=== PATIENT | female | born 1990 | race American Indian/Alaskan Native ===

== ENCOUNTER 2017-09-07 16:31 | Emergency (ER) | payer OTHER ==
[2017-09-07 16:43] VITALS: BP 119/80
[2017-09-07 20:16] LABS: Bilirubin,Urine NEG (Negative); Blood,Urine NEG (Negative); Color,Urine Yellow (Yellow); Protein,Urine <15 mg/dL mg/dL (Negative); Urobilinogen,Urine < 2.0 mg/dL (<2.0)
[2017-09-07] MEDS ORDERED: ULTRAM PO ONE (20:19)
[2017-09-07 20:20] LABS: HCG Qualitative,Urine Negative (Negative)
--- NOTE | 2017-09-07 20:23 | Emergency Department Report ---
ED Lower Extremity HPI - General Chief Complaint: Extremity Problem,Nontraumatic Stated Complaint: KNEE PAIN Time Seen by Provider: 09/07/17 20:12 Source: patient Mode of arrival: Ambulatory Limitations: No Limitations - History of Present Illness Initial Comments: pt states she slipped and fell in store stiking her anterior left knee approx 4 hrs ago , pt was initially ambulatory on scene but pain in lower knee now 5/10 exacerbated by weight bearing, pt denies laceration or abrasion no swelling , pain with ambulation using crutches already in her possession MD Complaint: knee injury Onset/Timin -: hour(s) Injury: Knee: Left Type of Injury: blunt, other Place: other (store) Severity: moderate Severity scale (0 -10): 4 Improves With: rest Worsens With: weight bearing Context: fall Associated Symptoms: able to partially bear weight - Related Data Previous Rx's Medication Instructions Recorded Last Taken Type Cephalexin [Keflex] 500 mg PO BID #14 capsule 09/07/17 Unknown Rx Cyclobenzaprine [Flexeril] 10 mg PO BID PRN #20 tablet 09/07/17 Unknown Rx Naproxen 500 mg PO BID PRN #30 tablet 09/07/17 Unknown Rx Allergies Allergy/AdvReac Type Severity Reaction Status Date / Time No Known Allergies Allergy Unverified 09/07/17 16:43 ED Review of Systems ROS: Stated complaint: KNEE PAIN Other details as noted in HPI Constitutional: denies: chills, fever Eyes: denies: eye pain, eye discharge, vision change ENT: denies: ear pain, throat pain Respiratory: denies: cough, shortness of breath, wheezing Cardiovascular: denies: chest pain, palpitations Endocrine: no symptoms reported Gastrointestinal: denies: abdominal pain, nausea, diarrhea Genitourinary: denies: urgency, dysuria, discharge Musculoskeletal: myalgia, other (knee pain ). denies: back pain, joint swelling , arthralgia Skin: denies: rash, lesions Neurological: denies: headache, weakness, paresthesias Psychiatric: denies: anxiety, depression Hematological/Lymphatic: denies: easy bleeding, easy bruising ED Past Medical Hx - Past Medical History Previous Medical History?: No Additional medical history: anemic - Social History Smoking Status: Never Smoker - Medications Home Medications: Home Medications Medication Instructions Recorded Confirmed Last Taken Type Cephalexin [Keflex] 500 mg PO BID #14 capsule 09/07/17 Unknown Rx Cyclobenzaprine [Flexeril] 10 mg PO BID PRN #20 tablet 09/07/17 Unknown Rx Naproxen 500 mg PO BID PRN #30 tablet 09/07/17 Unknown Rx ED Physical Exam - General Limitations: No Limitations General appearance: alert, in no apparent distress - Head Head exam: Present: atraumatic, normocephalic - Eye Eye exam: Present: normal appearance - ENT ENT exam: Present: mucous membranes moist - Neck Neck exam: Present: normal inspection - Respiratory Respiratory exam: Present: normal lung sounds bilaterally. Absent: respiratory distress - Cardiovascular Cardiovascular Exam: Present: regular rate, normal rhythm. Absent: systolic murmur, diastolic murmur, rubs, gallop - GI/Abdominal GI/Abdominal exam: Present: soft, normal bowel sounds - Rectal Rectal exam: Present: deferred - Extremities Exam Extremities exam: Present: normal inspection, full ROM, tenderness (left anterior knee ), normal capillary refill. Absent: pedal edema, joint swelling, calf tenderness - Expanded Lower Extremity Exam Left Knee exam: Present: normal inspection, full ROM, tenderness (anterior sub patellar pain no echymosis no swelling no erythema no drawer no pain with rotation joint is stable ), full knee extension. Absent: swelling, abrasion, laceration, ecchymosis, deformity, crepidus, dislocation, erythema, effusion, pain w/ pronation/supination, posterior draw sign, pain/laxity with valgus Lower Leg exam: Present: normal inspection, full ROM Ankle exam: Present: normal inspection, full ROM Foot/Toe exam: Present: normal inspection, full ROM Neuro vascular tendon exam: Present: no vascular compromise. Absent: pulse deficit, abnormal cap refill, motor deficit, sensory deficit, tendon deficit, extremity cold to touch, pallor, abnormal 2-point discrimination, decreased fine /light touch, foot drop, peroneal nerve deficit, significant pain with passive ROM of distal joint Gait: Positive: observed and limited by pain - Back Exam Back exam: Present: normal inspection - Neurological Exam Neurological exam: Present: alert, oriented X3 - Psychiatric Psychiatric exam: Present: normal affect, normal mood - Skin Skin exam: Present: warm, dry, intact, normal color. Absent: rash ED Course Vital Signs 09/07/17 16:37 Temperature 98.7 F Pulse Rate 87 Respiratory 16 Rate Blood Pressure 119/80 O2 Sat by Pulse 100 Oximetry ED Lower Extremity MDM - Lab Data Laboratory Tests 09/07/17 19:53 Urine Color Yellow Urine Turbidity Clear Urine pH 7.0 Ur Specific [place] 1.010 Urine Protein <15 mg/dl Urine Glucose (UA) Neg Urine Ketones Neg Urine Blood Neg Urine Nitrite Neg Urine Bilirubin Neg Urine Urobilinogen < 2.0 Ur Leukocyte Esterase Lg Urine WBC (Auto) 42.0 H Urine RBC (Auto) 2.0 U Epithel Cells (Auto) 5.0 Urine HCG, Qual Negative - Radiology Data Radiology results: report reviewed, image reviewed no fracture no soft tissue abnormality - Medical Decision Making pt appears well nad, knee exam: no swelling no ecchymosis rom intact no drawer no pain with rotation no deformity no ecchymosis no erythema xray: neg for fracture, incidental uti on ua, will tx with keflex, pt denies vaginal discharge plan: ed[place] continue to use crutches, nsaids, flexeril, tiger balm, knee exercises, cryo, follow up with pcp in 2-3 days. Critical care attestation.: If time is entered above; I have spent that time in minutes in the direct care of this critically ill patient, excluding procedure time. ED Disposition Clinical Impression: Strain of left knee Qualifiers: Encounter type: initial encounter Qualified Code(s): S86.912A - Strain of unspecified muscle(s) and tendon(s) at lower leg level, left leg, initial encounter Disposition: TO HOME OR SELFCARE Is pt being admited?: No Does the pt Need Aspirin: No Condition: Good Instructions: Knee Pain (ED), Knee Exercises (GEN), Knee Sprain (ED) Prescriptions: Cephalexin [Keflex] 500 mg PO BID #14 capsule Cyclobenzaprine [Flexeril] 10 mg PO BID PRN #20 tablet PRN Reason: Muscle Spasm Naproxen 500 mg PO BID PRN #30 tablet PRN Reason: Pain , Severe (7-10) Referrals: [facility] [Outside] - 3-5 Days Forms: Work/School Release Form(ED) Time of Disposition: 20:56
--- NOTE | 2017-09-07 21:02 | XRay Report ---
FINAL REPORT PROCEDURE: XR KNEE 3V LT TECHNIQUE: Left knee radiographs, AP, lateral and sunrise views. CPT 52527 HISTORY: fall /LT KNEE PAIN COMPARISON: No prior studies are available for comparison. FINDINGS: Fracture (s) and/or Dislocation(s): None . Alignment: Normal . Joint space(s): Normal . Soft tissues: Normal . Bone mineralization: Normal . Foreign bodies: None . IMPRESSION: Normal Examination.
== END 2017-09-07 21:15 | disposition home or self-care (01) ==
LOC: ED 16:31
DX: S86.812A Strain of other muscle(s) and tendon(s) at lower leg level, left leg, initial encounter (principal); W01.198A Fall on same level from slipping, tripping and stumbling with subsequent striking against other object, initial encounter; Y93.89 Activity, other specified; Y92.89 Other specified places as the place of occurrence of the external cause; Y99.8 Other external cause status
CPT/HCPCS: 81001; 81025; 99284

== ENCOUNTER 2018-07-05 11:27 | Emergency (ER) | payer SELFPAY ==
[2018-07-05 11:55] VITALS: BP 106/67
--- NOTE | 2018-07-05 11:55 | Emergency Department Report ---
Blank Doc - Documentation Documentation: This is a 28-year-old female that right 5th toe x1 day and painful sexual inte rcourse xyears. Denies any other complaints. This initial assessment diagnostic orders/clinical plan/treatment(s) is/are subject to change based on patient's health status, clinical progression and re- assessment by fellow clinical providers in the ED. Further treatment and workup at subsequent clinical providers discretion. Patient/guardians urged not to elope from ED s their condition may be serious if not clinically assessed and managed. Initial orders include: 1-Patient sent to [facility] for further evaluation and treatment 2-xray
--- NOTE | 2018-07-05 12:39 | Emergency Department Report ---
ED Lower Extremity HPI - General Chief Complaint: Medical Clearance Stated Complaint: RIGHT TOE INJURY/VAGINAL PAIN CURING SEX Time Seen by Provider: 07/05/18 11:52 Source: patient Mode of arrival: Wheelchair Limitations: No Limitations - History of Present Illness Initial Comments: Patient is 28 years old female with no significant past medical history. Patient presented to the ER complaining of right foot pain since yesterday after a horse stepped on her foot. Patient denied any other injuries. 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 Patient denied any vaginal discharge, vaginal bleeding, fever, dysuria or other symptoms. MD Complaint: foot injury -: Last night Injury: Foot: Right Type of Injury: blunt Place: street/outdoors Severity: moderate Severity scale (0 -10): 5 - Related Data Previous Rx's Medication Instructions Recorded Last Taken Type Cephalexin [Keflex] 500 mg PO BID #14 capsule 09/07/17 Unknown Rx Naproxen 500 mg PO BID PRN #30 tablet 09/07/17 Unknown Rx Cyclobenzaprine [Flexeril 10 MG 10 mg PO BID PRN #20 tablet 05/05/18 Unknown Rx TAB] Ibuprofen [Motrin] 800 mg PO Q8HR #30 tablet 05/05/18 Unknown Rx Allergies Allergy/AdvReac Type Severity Reaction Status Date / Time No Known Allergies Allergy Verified 05/05/18 10:43 ED Review of Systems ROS: Stated complaint: RIGHT TOE INJURY/VAGINAL PAIN CURING SEX Other details as noted in HPI Comment: All other systems reviewed and negative Respiratory: denies: cough, shortness of breath Genitourinary: dyspareunia. denies: urgency, dysuria, frequency, hematuria, discharge, abnormal menses ED Past Medical Hx - Past Medical History Previous Medical History?: Yes Additional medical history: anemic - Surgical History Past Surgical History?: Yes Additional Surgical History: rt ankle - Social History Smoking Status: Never Smoker Substance Use Type: Prescribed - Medications Home Medications: Home Medications Medication Instructions Recorded Confirmed Last Taken Type Cephalexin [Keflex] 500 mg PO BID #14 capsule 09/07/17 Unknown Rx Naproxen 500 mg PO BID PRN #30 tablet 09/07/17 Unknown Rx Cyclobenzaprine [Flexeril 10 MG 10 mg PO BID PRN #20 tablet 05/05/18 Unknown Rx TAB] Ibuprofen [Motrin] 800 mg PO Q8HR #30 tablet 05/05/18 Unknown Rx ED Physical Exam - General Limitations: No Limitations General appearance: alert, in no apparent distress - Head Head exam: Present: atraumatic, normocephalic, normal inspection - Eye Eye exam: Present: normal appearance - ENT ENT exam: Present: normal exam, normal orophraynx - Neck Neck exam: Present: normal inspection, full ROM. Absent: tenderness, meningismus, lymphadenopathy, thyromegaly - Respiratory Respiratory exam: Present: normal lung sounds bilaterally - Cardiovascular Cardiovascular Exam: Present: regular rate, normal rhythm, normal heart sounds - GI/Abdominal GI/Abdominal exam: Present: soft. Absent: distended, tenderness, guarding, rebound, rigid - Expanded Lower Extremity Exam Right Lower Leg exam: Present: normal inspection, full ROM Ankle exam: Present: normal inspection, full ROM Foot/Toe exam: Present: normal inspection, full ROM, tenderness. Absent: swelling, abrasion, laceration, ecchymosis, dislocation, erythema, amputation Neuro vascular tendon exam: Present: no vascular compromise Gait: Positive: observed and normal - Back Exam Back exam: Present: normal inspection, full ROM. Absent: CVA tenderness (R), CVA tenderness (L), muscle spasm, paraspinal tenderness, vertebral tenderness - Neurological Exam Neurological exam: Present: alert, oriented X3, CN II-XII intact, normal gait - Psychiatric Psychiatric exam: Present: normal mood - Skin Skin exam: Present: warm, intact, normal color ED Course Vital Signs 07/05/18 11:53 Temperature 99 F Pulse Rate 78 Respiratory 18 Rate Blood Pressure 106/67 Blood Pressure 106/67 [Right] O2 Sat by Pulse 100 Oximetry ED Lower Extremity MDM - Radiology Data Radiology results: image reviewed interpreted by me: Right foot x-ray is unremarkable for acute findings. No fracture or dislocation. Critical care attestation.: If time is entered above; I have spent that time in minutes in the direct care of this critically ill patient, excluding procedure time. ED Disposition Clinical Impression: Contusion of foot, right, Dyspareunia Disposition: - TO HOME OR SELFCARE Is pt being admited?: No Condition: Stable Instructions: Foot Contusion (ED) Referrals: [facility] [Provider Group] - 3-5 Days
--- NOTE | 2018-07-05 13:00 | XRay Report ---
FINAL REPORT EXAM: XR FOOT 3+V RT HISTORY: foot pain TECHNIQUE: Three views of the right foot. PRIORS: None. FINDINGS: There is no evidence of acute fracture. There is no evidence of joint dislocation. There is no focal osseous lesions seen. IMPRESSION: There is no acute abnormality identified.
== END 2018-07-05 13:04 | disposition home or self-care (01) ==
LOC: ED 11:27
DX: S90.31XA Contusion of right foot, initial encounter (principal); N94.10 Unspecified dyspareunia; D64.9 Anemia, unspecified; W55.12XA Struck by horse, initial encounter; Y93.89 Activity, other specified; Y92.410 Unspecified street and highway as the place of occurrence of the external cause; Y99.8 Other external cause status

== ENCOUNTER 2018-08-06 21:47 | Emergency (ER) | payer MEDICAID, OTHER ==
--- NOTE | 2018-08-06 21:55 | Emergency Department Report ---
Blank Doc - Documentation Documentation: This is a 28-year-old female that presents with right sided lower abdominal pain with n/v. This initial assessment/diagnostic orders/clinical plan/treatment(s) is/are subject to change based on patient's health status, clinical progression and re- assessment by fellow clinical providers in the ED. Further treatment and workup at subsequent clinical providers discretion. Patient/guardians urged not to elope from the ED as their condition may be serious if not clinically assessed and managed. Initial orders include: 1- Patient sent to [facility] for further evaluation and treatment 2- labs 3- UA
[2018-08-06 22:40] LABS: Hematocrit 20.9 % (30.3-42.9); Hemoglobin 6.5 gm/dl (10.1-14.3); Mean Corpuscular HGB Conc 31 % (30-34); Red Blood Count 3.58 M/mm3 (3.65-5.03)
[2018-08-06 22:41] LABS: Mean Corpuscular Volume 58 fl (79-97); Platelet Count 384 K/mm3 (140-440); Red Cell Distribution Width 21.2 % (13.2-15.2)
[2018-08-06 22:54] LABS: Alanine Aminotransferase 14 units/L (7-56); Albumin 4.3 g/dL (3.9-5); BUN/Creatinine Ratio 8; Blood Urea Nitrogen 5 mg/dL (7-17); Calcium 8.9 mg/dL (8.4-10.2); Hemolysis Index 12
[2018-08-06 22:55] LABS: Bilirubin,Direct < 0.2 mg/dL (0-0.2)
[2018-08-06 23:09] LABS: Total Cells Counted 50
[2018-08-06 23:10] LABS: Anisocytosis 1+; Basophils % (Manual) 0 % (0.0-1.8)
[2018-08-06 23:11] LABS: Hypochromasia 2+; Platelet Estimate Consistent w Auto; Target Cells 2+
[2018-08-07 01:32] LABS: Bilirubin,Urine NEG (Negative); Blood,Urine NEG (Negative); Color,Urine Yellow (Yellow); Mucus,Urine FEW /HPF; Urobilinogen,Urine < 2.0 mg/dL (<2.0)
[2018-08-07 01:36] LABS: HCG Qualitative,Urine Positive (Negative)
--- NOTE | 2018-08-07 05:11 | Ultrasound Report ---
PROCEDURE: US OB <= 14 WEEKS FETUS TECHNIQUE: Real-time transabdominal sonography of the uterus, placenta, amniotic fluid, adnexa, and fetus was performed with image documentation. Measurements were obtained to determine age/size. M-mode Doppler was used to document heartbeat. ADDITIONAL GESTATION: None. HISTORY: Vaginal bleeding pain COMPARISONS: None . FINDINGS: The uterus measures 13.3 x 5.6 x 7.7 cm. The endometrium is thickened at 16 mm. There is no evidence of intrauterine . Cervix: Normal. Right Ovary: Normal . Left Ovary: Normal . There is a 2 cm cyst. There is no free pelvic fluid. IMPRESSION: There is no evidence of intrauterine or ectopic . This document is electronically signed by Saud Car MD., August 07 2018 05:09:45 AM ET
--- NOTE | 2018-08-07 05:12 | Ultrasound Report ---
PROCEDURE: US OB TRANSVAGINAL TECHNIQUE: Real-time transvaginal sonography of the uterus, placenta, amniotic fluid, adnexa, and fe tus was performed with image documentation. Measurements were obtained to determine age/size. M -mode Doppler was used to document heartbeat. ADDITIONAL GESTATION: None. HISTORY: pelvic pain and COMPARISONS: None . FINDINGS: The uterus measures 13.3 x 5.6 x 7.7 cm. The endometrium is thickened at 16 mm. There is no evidence of intrauterine . Cervix: Normal. Right Ovary: Normal . Left Ovary: Normal . There is a 2 cm cyst. There is no free pelvic fluid. IMPRESSION: There is no evidence of intrauterine or ectopic . This document is electronically signed by Saud Car MD., August 07 2018 05:10:30 AM ET
--- NOTE | 2018-08-07 05:45 | Emergency Department Report ---
ED Abdominal Pain HPI - General Chief Complaint: Abdominal Pain Stated Complaint: ABD PAIN NV WEAKNESS Time Seen by Provider: 08/06/18 21:53 Source: patient Mode of arrival: Ambulatory Limitations: No Limitations - History of Present Illness MD Complaint: abdominal pain Severity scale (0 -10): 8 - Related Data Previous Rx's Medication Instructions Recorded Last Taken Type Cephalexin [Keflex] 500 mg PO BID #14 capsule 09/07/17 Unknown Rx Naproxen 500 mg PO BID PRN #30 tablet 09/07/17 Unknown Rx Cyclobenzaprine [Flexeril 10 MG 10 mg PO BID PRN #20 tablet 05/05/18 Unknown Rx TAB] Ibuprofen [Motrin] 800 mg PO Q8HR #30 tablet 05/05/18 Unknown Rx Naproxen [Naprosyn] 500 mg PO BID #14 tablet 07/05/18 Unknown Rx Allergies Allergy/AdvReac Type Severity Reaction Status Date / Time No Known Allergies Allergy Verified 05/05/18 10:43 ED Review of Systems ROS: Stated complaint: ABD PAIN NV WEAKNESS Other details as noted in HPI ED Past Medical Hx - Past Medical History Previous Medical History?: Yes Additional medical history: anemic - Surgical History Past Surgical History?: Yes Additional Surgical History: rt ankle - Social History Smoking Status: Never Smoker Substance Use Type: None - Medications Home Medications: Home Medications Medication Instructions Recorded Confirmed Last Taken Type Cephalexin [Keflex] 500 mg PO BID #14 capsule 09/07/17 Unknown Rx Naproxen 500 mg PO BID PRN #30 tablet 09/07/17 Unknown Rx Cyclobenzaprine [Flexeril 10 MG 10 mg PO BID PRN #20 tablet 05/05/18 Unknown Rx TAB] Ibuprofen [Motrin] 800 mg PO Q8HR #30 tablet 05/05/18 Unknown Rx Naproxen [Naprosyn] 500 mg PO BID #14 tablet 07/05/18 Unknown Rx ED Physical Exam - General Limitations: No Limitations ED Course Vital Signs 08/06/18 21:52 Temperature 98.6 F Pulse Rate 109 H Respiratory 16 Rate Blood Pressure 107/65 O2 Sat by Pulse 100 Oximetry ED Medical Decision Making - Lab Data Result diagrams: 08/06/18 22:14 08/06/18 22:14 Critical care attestation.: If time is entered above; I have spent that time in minutes in the direct care of this critically ill patient, excluding procedure time. ED Disposition Condition: Stable Instructions: Abdominal Pain (ED) Referrals: KELLY CORREIA MD [Primary Care Provider] - 3-5 Days
[2018-08-07 05:50] VITALS: BP 95/59
--- NOTE | 2018-08-07 05:50 | Emergency Department Report ---
Chief Complaint: Abdominal Pain Stated Complaint: ABD PAIN NV WEAKNESS Time Seen by Provider: 08/06/18 21:53 - HPI History of Present Illness: 28-year-old female with a past medical history of anemia comes in for complaint of abdominal pain, nausea vomiting weakness dizziness and headache. - ROS Review of Systems: Pertinent positives: Headache, dizziness, abdominal pain, weakness, nausea, vomiting Pertinent negatives: Chest pain, back pain, change of vision - Exam Vital Signs: Vital Signs 08/06/18 21:52 Temperature 98.6 F Pulse Rate 109 H Respiratory 16 Rate Blood Pressure 107/65 O2 Sat by Pulse 100 Oximetry Physical Exam: Gen: alert oriented NAD Cardic: regular rate and rhythm no murmurs appreciated Resp: Clear to auscultation bilateral no wheezing no rales or rhonchi. Abdomen: Soft nontender nondistended normal bowel sounds. MSE screening note: Focused history and physical exam performed. Due to findings the following was ordered: Spoke to Dr. Coleman FOOD TECHNOLOGIST he recommends the patient to return back to the emergency room or OB in 48 hours to have a repeat beta to see if there is increase in her hCG. Patient discussed with doctor:: CORNELIA COLEMAN ED Medical Decision Making - Lab Data Result diagrams: 08/06/18 22:14 08/06/18 22:14 ED Disposition for MSE Condition: Stable Instructions: Abdominal Pain (ED) Referrals: KELLY CORREIA MD [Primary Care Provider] - 3-5 Days
--- NOTE | 2018-08-07 09:31 | Emergency Department Report ---
ED Female HPI - General Chief complaint: Abdominal Pain Stated complaint: ABD PAIN NV WEAKNESS Time Seen by Provider: 08/06/18 21:53 Source: patient Mode of arrival: Ambulatory Limitations: No Limitations - History of Present Illness Initial comments: Ms. Ramos is a very pleasant 28-year-old female with history of anemia who presents with right lower quadrant pain. She had 2 positive home tests this past week. She also had the presence he confirmed at the health department. She also had nausea and vomiting generalized weakness. Last menstrual period July 05. Estimated gestational age 4 weeks 5 days, estimated due date by LMP 04/11/2019. She does not pain at this time. However she had moderately severe sharp pain. Denies any vaginal bleeding. However she noticed pinkish discharge on the ultrasound probe. This is Annalise's fourth . She is has 2 healthy children via C- section. One surgical . MD Complaint: other (right lower quadrant pain) -: Gradual, days(s) (several days) Severity: mild Quality: cramping, sharp Consistency: intermittent Are you Now?: Yes Last Menstrual Period: 07/05/18 EDC: 04/11/19 Associated Symptoms: nausea/vomiting - Related Data : 4 Para: 2 A: 1 Previous Rx's Medication Instructions Recorded Last Taken Type Cephalexin [Keflex] 500 mg PO BID #14 capsule 09/07/17 Unknown Rx Naproxen 500 mg PO BID PRN #30 tablet 09/07/17 Unknown Rx Cyclobenzaprine [Flexeril 10 MG 10 mg PO BID PRN #20 tablet 05/05/18 Unknown Rx TAB] Ibuprofen [Motrin] 800 mg PO Q8HR #30 tablet 05/05/18 Unknown Rx Naproxen [Naprosyn] 500 mg PO BID #14 tablet 07/05/18 Unknown Rx Allergies Allergy/AdvReac Type Severity Reaction Status Date / Time No Known Allergies Allergy Verified 05/05/18 10:43 ED Review of Systems ROS: Stated complaint: ABD PAIN NV WEAKNESS Other details as noted in HPI Comment: All other systems reviewed and negative Constitutional: denies: fever, malaise Respiratory: denies: cough Cardiovascular: denies: chest pain ED Past Medical Hx - Past Medical History Previous Medical History?: Yes Additional medical history: anemic - Surgical History Past Surgical History?: Yes Additional Surgical History: rt ankle - Social History Smoking Status: Never Smoker Substance Use Type: None - Medications Home Medications: Home Medications Medication Instructions Recorded Confirmed Last Taken Type Cephalexin [Keflex] 500 mg PO BID #14 capsule 09/07/17 Unknown Rx Naproxen 500 mg PO BID PRN #30 tablet 09/07/17 Unknown Rx Cyclobenzaprine [Flexeril 10 MG 10 mg PO BID PRN #20 tablet 05/05/18 Unknown Rx TAB] Ibuprofen [Motrin] 800 mg PO Q8HR #30 tablet 05/05/18 Unknown Rx Naproxen [Naprosyn] 500 mg PO BID #14 tablet 07/05/18 Unknown Rx ED Physical Exam - General Limitations: No Limitations General appearance: alert, in no apparent distress - Head Head exam: Present: atraumatic, normocephalic - Eye Eye exam: Present: normal appearance - ENT ENT exam: Present: mucous membranes moist - Neck Neck exam: Present: normal inspection - Respiratory Respiratory exam: Present: normal lung sounds bilaterally. Absent: respiratory distress, wheezes, rales, rhonchi - Cardiovascular Cardiovascular Exam: Present: regular rate, normal rhythm, normal heart sounds. Absent: systolic murmur, diastolic murmur, rubs, gallop - GI/Abdominal GI/Abdominal exam: Present: soft, normal bowel sounds. Absent: distended, tenderness, guarding, rebound - Extremities Exam Extremities exam: Present: normal inspection - Back Exam Back exam: Present: normal inspection - Neurological Exam Neurological exam: Present: alert, oriented X3 - Psychiatric Psychiatric exam: Present: normal affect, normal mood - Skin Skin exam: Present: warm, dry, intact, normal color. Absent: rash ED Course Vital Signs 08/06/18 08/07/18 21:52 05:49 Temperature 98.6 F 98.5 F Pulse Rate 109 H 73 Respiratory 16 16 Rate Blood Pressure 107/65 Blood Pressure 95/59 [Left] O2 Sat by Pulse 100 100 Oximetry ED Medical Decision Making - Lab Data Result diagrams: 08/06/18 22:14 08/06/18 22:14 Laboratory Results - last 24 hr 08/06/18 08/06/18 08/06/18 22:14 22:14 23:16 WBC 6.2 RBC 3.58 L Hgb 6.5 L Hct 20.9 L MCV 58 L MCH 18 L MCHC 31 RDW 21.2 H Plt Count 384 Add Manual Diff Complete Total Counted 50 Seg Neuts % (Manual) 66.0 Band Neutrophils % 0 Lymphocytes % (Manual) 28.0 Reactive Lymphs % (Man) 0 Monocytes % (Manual) 4.0 Eosinophils % (Manual) 2.0 Basophils % (Manual) 0 Metamyelocytes % 0 Myelocytes % 0 Promyelocytes % 0 Blast Cells % 0 Nucleated RBC % Not Reportable Seg Neutrophils # Man 4.1 Band Neutrophils # 0.0 Lymphocytes # (Manual) 1.7 Abs React Lymphs (Man) 0.0 Monocytes # (Manual) 0.2 Eosinophils # (Manual) 0.1 Basophils # (Manual) 0.0 Metamyelocytes # 0.0 Myelocytes # 0.0 Promyelocytes # 0.0 Blast Cells # 0.0 WBC Morphology Not Reportable Hypersegmented Neuts Not Reportable Hyposegmented Neuts Not Reportable Hypogranular Neuts Not Reportable Smudge Cells Not Reportable Toxic Granulation Not Reportable Toxic Vacuolation Not Reportable Dohle Bodies Not Reportable Pelger-Huet Anomaly Not Reportable Blade Rods Not Reportable Platelet Estimate Consistent w auto Clumped Platelets Not Reportable Plt Clumps, EDTA Not Reportable Large Platelets Not Reportable Giant Platelets Not Reportable Platelet Satelliting Not Reportable Plt Morphology Comment Not Reportable RBC Morphology Not Reportable Dimorphic RBCs Not Reportable Polychromasia Not Reportable Hypochromasia 2+ Poikilocytosis Not Reportable Anisocytosis 1+ Microcytosis 2+ Macrocytosis Not Reportable Spherocytes Not Reportable Pappenheimer Bodies Not Reportable Sickle Cells Not Reportable Target Cells 2+ Tear Drop Cells Not Reportable Ovalocytes Not Reportable Helmet Cells Not Reportable [place] Bodies Not Reportable [place] Rings Not Reportable [place] Cells Not Reportable Bite Cells Not Reportable Crenated Cell Not Reportable Elliptocytes Few Acanthocytes (Spur) Not Reportable Rouleaux Not Reportable Hemoglobin C Crystals Not Reportable Schistocytes Not Reportable Malaria parasites Not Reportable Fidel Bodies Not Reportable Hem Pathologist Commnt No Sodium 138 Potassium 4.1 Chloride 102.8 Carbon Dioxide 20 L Anion Gap 19 BUN 5 L Creatinine 0.6 L Estimated GFR > 60 BUN/Creatinine Ratio 8 Glucose 94 Calcium 8.9 Total Bilirubin 0.20 Direct Bilirubin < 0.2 Indirect Bilirubin 0.0 AST 14 ALT 14 Alkaline Phosphatase 54 Total Protein 7.2 Albumin 4.3 Albumin/Globulin Ratio 1.5 Lipase 22 HCG, Quant Urine Color Yellow Urine Turbidity Hazy Urine pH 6.0 Ur Specific [place] 1.013 Urine Protein 100 mg/dl Urine Glucose (UA) Neg Urine Ketones Neg Urine Blood Neg Urine Nitrite Neg Urine Bilirubin Neg Urine Urobilinogen < 2.0 Ur Leukocyte Esterase Neg Urine WBC (Auto) 31.0 H Urine RBC (Auto) 3.0 U Epithel Cells (Auto) < 1.0 Urine Mucus Few Urine HCG, Qual Positive A Blood Type Antibody Screen Ord Rhogam Gestat Weeks 08/07/18 08/07/18 08/07/18 02:24 02:24 05:58 WBC RBC Hgb Hct MCV MCH MCHC RDW Plt Count Add Manual Diff Total Counted Seg Neuts % (Manual) Band Neutrophils % Lymphocytes % (Manual) Reactive Lymphs % (Man) Monocytes % (Manual) Eosinophils % (Manual) Basophils % (Manual) Metamyelocytes % Myelocytes % Promyelocytes % Blast Cells % Nucleated RBC % Seg Neutrophils # Man Band Neutrophils # Lymphocytes # (Manual) Abs React Lymphs (Man) Monocytes # (Manual) Eosinophils # (Manual) Basophils # (Manual) Metamyelocytes # Myelocytes # Promyelocytes # Blast Cells # WBC Morphology Hypersegmented Neuts Hyposegmented Neuts Hypogranular Neuts Smudge Cells Toxic Granulation Toxic Vacuolation Dohle Bodies Pelger-Huet Anomaly Blade Rods Platelet Estimate Clumped Platelets Plt Clumps, EDTA Large Platelets Giant Platelets Platelet Satelliting Plt Morphology Comment RBC Morphology Dimorphic RBCs Polychromasia Hypochromasia Poikilocytosis Anisocytosis Microcytosis Macrocytosis Spherocytes Pappenheimer Bodies Sickle Cells Target Cells Tear Drop Cells Ovalocytes Helmet Cells [place] Bodies [place] Rings [place] Cells Bite Cells Crenated Cell Elliptocytes Acanthocytes (Spur) Rouleaux Hemoglobin C Crystals Schistocytes Malaria parasites Fidel Bodies Hem Pathologist Commnt Sodium Potassium Chloride Carbon Dioxide Anion Gap BUN Creatinine Estimated GFR BUN/Creatinine Ratio Glucose Calcium Total Bilirubin Direct Bilirubin Indirect Bilirubin AST ALT Alkaline Phosphatase Total Protein Albumin Albumin/Globulin Ratio Lipase HCG, Quant 934.2 H Urine Color Urine Turbidity Urine pH Ur Specific [place] Urine Protein Urine Glucose (UA) Urine Ketones Urine Blood Urine Nitrite Urine Bilirubin Urine Urobilinogen Ur Leukocyte Esterase Urine WBC (Auto) Urine RBC (Auto) U Epithel Cells (Auto) Urine Mucus Urine HCG, Qual Blood Type O POSITIVE O POSITIVE Antibody Screen Negative Ord Rhogam Gestat Weeks Rh pos - Radiology Data Radiology results: report reviewed No evidence of . - Medical Decision Making Ms. Leija presents with new diagnosis of as she has symptoms of abdominal pain vomiting. No intrauterine identified on ultrasound. HCG below the discriminatory zone. Ms. Leija understands that she has had higher risk for ectopic considering previous pelvic surgeries. Secondly she also understands that this is an early according to her last menstrual period. She understands the possibility of miscarriage, tubal or early . She will return to the ER to be evaluated in 2 days on Friday. She will need repeat hCG and possible ultrasound. Currently she denies any pain. She understands to return immediately if pain becomes severe or if she develops new symptoms such as vaginal bleeding. She has a history of anemia. She has been prescribed vitamins and iron tablets. Critical care attestation.: If time is entered above; I have spent that time in minutes in the direct care of this critically ill patient, excluding procedure time. ED Disposition Clinical Impression: Abdominal pain affecting , Iron deficiency anemia Disposition: DC-01 TO HOME OR SELFCARE Is pt being admited?: No Does the pt Need Aspirin: No Condition: Stable Instructions: Iron Deficiency Anemia (ED), Abdominal Pain in (ED) Additional Instructions: Please return to the ER Friday for repeat blood hormone tests, hCG. Please return sooner if you developed severe pain Referrals: BOYD BRUNO MD [Staff Physician] - 2-3 Days Forms: Work/School Release Form(ED)
== END 2018-08-07 09:48 | disposition home or self-care (01) ==
LOC: ED 21:47
DX: O26.891 Other specified pregnancy related conditions, first trimester (principal); R10.31 Right lower quadrant pain; O21.8 Other vomiting complicating pregnancy; O99.011 Anemia complicating pregnancy, first trimester; Z3A.01 Less than 8 weeks gestation of pregnancy
CPT/HCPCS: 36415; 76801; 76817; 80048; 80076; 81001; 81025; 83690; 84702; 85007; 85025; 86850; 86900; 86901; 93005; 93010

== ENCOUNTER 2018-08-17 21:57 | Emergency (ER) | payer MEDICAID, OTHER ==
[2018-08-17 22:17] VITALS: BP 108/70
--- NOTE | 2018-08-17 22:20 | Emergency Department Report ---
Blank Doc - Documentation Documentation: This is a 28-year-old female that presents to the ED for a repeat US. Patient is . Denies f/o with OBGYN. Patient denies any vaginal bleeding or pelvic pain. Patient stated was told to get a repeat US for cyst. This initial assessment/diagnostic orders/clinical plan/treatment(s) is/are subject to change based on patient's health status, clinical progression and re- assessment by fellow clinical providers in the ED. Further treatment and workup at subsequent clinical providers discretion. Patient/guardians urged not to elope from the ED as their condition may be serious if not clinically assessed and managed. Initial orders include: 1- Patient sent to [facility] for further evaluation and treatment 2- labs
[2018-08-17 22:53] LABS: Hematocrit 22.3 % (30.3-42.9); Hemoglobin 7.3 gm/dl (10.1-14.3); Mean Corpuscular HGB Conc 33 % (30-34); Platelet Count 533 K/mm3 (140-440); Red Blood Count 3.69 M/mm3 (3.65-5.03)
[2018-08-17 22:54] LABS: Mean Corpuscular Volume 61 fl (79-97)
[2018-08-17 22:55] LABS: Red Cell Distribution Width 25.6 % (13.2-15.2)
[2018-08-17 23:09] LABS: BUN/Creatinine Ratio 7; Blood Urea Nitrogen 4 mg/dL (7-17); Calcium 8.9 mg/dL (8.4-10.2); Hemolysis Index 7
--- NOTE | 2018-08-18 01:18 | Ultrasound Report ---
PROCEDURE: US OB TRANSVAGINAL TECHNIQUE: Transvaginal imaging was obtained of the pelvis. HISTORY: abd pain COMPARISONS: 08/10/2018 FINDINGS: There is now an intrauterine gestational sac which contains a pole. The crown-rump length is 4. 8 mm corresponding to a 6 week 1 day IUP. The heart rate is 127 BPM. There is no evidence of dougherty bchorionic hemorrhage. The right ovary is normal in size contour and echotexture measuring 3.5 x 1.9 x 2.2 cm. The blood shukri w is normal to the right ovary. The left ovary measures 3.4 x 2.8 x 3.1 cm. Within the left ovary is a complex cyst measuring 2.2 cm in diameter. The blood flow is normal for left ovary. There is minimal free fluid in the cul-de-sac. IMPRESSION: Single viable IUP, 6 weeks 1 day. The heart rate is 127 BPM.. Probable corpus luteal cyst in the left ovary. Minimal free fluid in the cul-de-sac. This document is electronically signed by Moose Pillai MD., August 18 2018 01:16:19 AM ET
[2018-08-18 01:19] LABS: Anisocytosis 1+; Band Neutrophils # (Manual) 0.1 K/mm3; Basophils % (Manual) 0 % (0.0-1.8); Total Cells Counted 100
[2018-08-18 01:20] LABS: Platelet Estimate Consistent w Auto; Target Cells Few; Tear Drop Cells Few
--- NOTE | 2018-08-18 01:20 | Ultrasound Report ---
PROCEDURE: US OB <= 14 WEEKS FETUS TECHNIQUE: Transabdominal imaging was obtained of the pelvis. HISTORY: abd pain COMPARISONS: 08/10/2018 FINDINGS: There is a gestational sac within the uterus containing a pole. The crown-rump length is 4.8 mm corresponding to a 6 week 1 day IUP. The heart rate is 127 BPM. There is no evidence of subcho rionic hemorrhage. The right ovary is normal in size contour blood flow and echotexture measuring 3.5 x 1.9 x 2.2 cm. The left ovary measures 3.4 x 2.8 x 3.1 cm. Within the left ovary is a complex cyst measuring 2.2 cm in diameter most likely representing a corpus luteum cyst. The blood flow is normal left ovary. There is minimal free fluid in the cul-de-sac. IMPRESSION: Single viable IUP, 6 week 1 day. The heart rate is 127 BPM.. This document is electronically signed by Moose Pillai MD., August 18 2018 01:18:01 AM ET
--- NOTE | 2018-08-18 01:58 | Emergency Department Report ---
ED Female HPI - General Chief complaint: Abdominal Pain Stated complaint: F/U WITH DR COBOS FOR US & OTHER TEST Time Seen by Provider: 08/17/18 22:14 Source: patient Mode of arrival: Ambulatory Limitations: No Limitations - History of Present Illness Initial comments: Annalise is a very pleasant female who is 6 weeks . Has not yet had confirmed IUP. I had the pleasure of taking care of her previously. She has not had abdominal pain since my initial evaluation. She has had vaginal spotting. Has first appt September 02. Complaint: vaginal bleeding -: Gradual Severity: mild Consistency: now resolved Improves with: none Worsens with: none Are you Now?: Yes - Related Data Previous Rx's Medication Instructions Recorded Last Taken Type Cephalexin [Keflex] 500 mg PO BID #14 capsule 09/07/17 Unknown Rx Naproxen 500 mg PO BID PRN #30 tablet 09/07/17 Unknown Rx Cyclobenzaprine [Flexeril 10 MG 10 mg PO BID PRN #20 tablet 05/05/18 Unknown Rx TAB] Ibuprofen [Motrin] 800 mg PO Q8HR #30 tablet 05/05/18 Unknown Rx Naproxen [Naprosyn] 500 mg PO BID #14 tablet 07/05/18 Unknown Rx Ferrous Sulfate [Feosol 325 MG tab] 325 mg PO TID #90 tablet 08/07/18 Unknown Rx Vit-Fe Fumar-FA [ 1 tab PO QDAY #30 tablet 08/07/18 Unknown Rx Vitamin] Allergies Allergy/AdvReac Type Severity Reaction Status Date / Time No Known Allergies Allergy Verified 05/05/18 10:43 ED Review of Systems ROS: Stated complaint: F/U WITH DR COBOS FOR US & OTHER TEST Other details as noted in HPI Comment: All other systems reviewed and negative Constitutional: denies: fever, malaise Respiratory: denies: cough Cardiovascular: denies: chest pain ED Past Medical Hx - Past Medical History Previous Medical History?: Yes Additional medical history: anemic - Surgical History Additional Surgical History: rt ankle - Social History Smoking Status: Never Smoker Substance Use Type: None - Medications Home Medications: Home Medications Medication Instructions Recorded Confirmed Last Taken Type Cephalexin [Keflex] 500 mg PO BID #14 capsule 09/07/17 Unknown Rx Naproxen 500 mg PO BID PRN #30 tablet 09/07/17 Unknown Rx Cyclobenzaprine [Flexeril 10 MG 10 mg PO BID PRN #20 tablet 05/05/18 Unknown Rx TAB] Ibuprofen [Motrin] 800 mg PO Q8HR #30 tablet 05/05/18 Unknown Rx Naproxen [Naprosyn] 500 mg PO BID #14 tablet 07/05/18 Unknown Rx Ferrous Sulfate [Feosol 325 MG tab] 325 mg PO TID #90 tablet 08/07/18 Unknown Rx Vit-Fe Fumar-FA [ 1 tab PO QDAY #30 tablet 08/07/18 Unknown Rx Vitamin] ED Physical Exam - General Limitations: No Limitations General appearance: alert, in no apparent distress - Head Head exam: Present: atraumatic, normocephalic - Eye Eye exam: Present: normal appearance - ENT ENT exam: Present: mucous membranes moist - Neck Neck exam: Present: normal inspection, full ROM - Respiratory Respiratory exam: Present: normal lung sounds bilaterally. Absent: respiratory distress, wheezes, rales, rhonchi - Cardiovascular Cardiovascular Exam: Present: regular rate, normal rhythm, normal heart sounds. Absent: systolic murmur, diastolic murmur, rubs, gallop - GI/Abdominal GI/Abdominal exam: Present: soft, normal bowel sounds. Absent: distended, tenderness, guarding, rebound - Extremities Exam Extremities exam: Present: normal inspection - Back Exam Back exam: Present: normal inspection - Neurological Exam Neurological exam: Present: alert, oriented X3 - Psychiatric Psychiatric exam: Present: normal affect, normal mood - Skin Skin exam: Present: warm, dry, intact, normal color. Absent: rash ED Course Vital Signs 08/17/18 08/17/18 22:03 22:15 Temperature 99.6 F 99.3 F Pulse Rate 76 85 Respiratory 18 18 Rate Blood Pressure 108/70 108/70 O2 Sat by Pulse 100 100 Oximetry ED Medical Decision Making - Lab Data Result diagrams: 08/17/18 22:24 08/17/18 22:24 Laboratory Results - last 24 hr 08/17/18 08/17/18 08/17/18 22:24 22:24 22:24 WBC 6.2 RBC 3.69 Hgb 7.3 L Hct 22.3 L MCV 61 L MCH 20 L MCHC 33 RDW 25.6 H Plt Count 533 H Add Manual Diff Complete Total Counted 100 Seg Neuts % (Manual) 53.0 Band Neutrophils % 1.0 Lymphocytes % (Manual) 38.0 H Reactive Lymphs % (Man) 0 Monocytes % (Manual) 6.0 Eosinophils % (Manual) 2.0 Basophils % (Manual) 0 Metamyelocytes % 0 Myelocytes % 0 Promyelocytes % 0 Blast Cells % 0 Nucleated RBC % Not Reportable Seg Neutrophils # Man 3.3 Band Neutrophils # 0.1 Lymphocytes # (Manual) 2.4 Abs React Lymphs (Man) 0.0 Monocytes # (Manual) 0.4 Eosinophils # (Manual) 0.1 Basophils # (Manual) 0.0 Metamyelocytes # 0.0 Myelocytes # 0.0 Promyelocytes # 0.0 Blast Cells # 0.0 WBC Morphology Not Reportable Hypersegmented Neuts Not Reportable Hyposegmented Neuts Not Reportable Hypogranular Neuts Not Reportable Smudge Cells Not Reportable Toxic Granulation Not Reportable Toxic Vacuolation Not Reportable Dohle Bodies Not Reportable Pelger-Huet Anomaly Not Reportable Blade Rods Not Reportable Platelet Estimate Consistent w auto Clumped Platelets Not Reportable Plt Clumps, EDTA Not Reportable Large Platelets Not Reportable Giant Platelets Not Reportable Platelet Satelliting Not Reportable Plt Morphology Comment Not Reportable RBC Morphology Not Reportable Dimorphic RBCs Not Reportable Polychromasia 1+ Hypochromasia Not Reportable Poikilocytosis Not Reportable Anisocytosis 1+ Microcytosis 1+ Macrocytosis Not Reportable Spherocytes Not Reportable Pappenheimer Bodies Not Reportable Sickle Cells Not Reportable Target Cells Few Tear Drop Cells Few Ovalocytes Not Reportable Helmet Cells Not Reportable [place] Bodies Not Reportable [place] Rings Not Reportable [place] Cells Not Reportable Bite Cells Not Reportable Crenated Cell Not Reportable Elliptocytes Not Reportable Acanthocytes (Spur) Not Reportable Rouleaux Not Reportable Hemoglobin C Crystals Not Reportable Schistocytes Not Reportable Malaria parasites Not Reportable Fidel Bodies Not Reportable Hem Pathologist Commnt No Sodium 141 Potassium 3.8 Chloride 105.9 Carbon Dioxide 23 Anion Gap 16 BUN 4 L Creatinine 0.6 L Estimated GFR > 60 BUN/Creatinine Ratio 7 Glucose 111 H Calcium 8.9 HCG, Quant 33816 H - Radiology Data Radiology results: report reviewed viable IUP 6 weeks 1 day - Medical Decision Making Threatened Miscarriage, ectopic ruled out with serial HCG and serial US exams Critical care attestation.: If time is entered above; I have spent that time in minutes in the direct care of this critically ill patient, excluding procedure time. ED Disposition Clinical Impression: Threatened miscarriage Disposition: DC-01 TO HOME OR SELFCARE Is pt being admited?: No Does the pt Need Aspirin: No Condition: Undetermined Instructions: Threatened Miscarriage (ED) Additional Instructions: Your due date is April 11, 2019. Referrals: MARCE SABILLON MD [Staff Physician] - 3-5 Days Forms: Work/School Release Form(ED)
== END 2018-08-18 02:02 | disposition home or self-care (01) ==
LOC: ED 21:57
DX: O20.0 Threatened abortion (principal); Z3A.01 Less than 8 weeks gestation of pregnancy
CPT/HCPCS: 36415; 76801; 76817; 80048; 84702; 85007; 85025

== ENCOUNTER 2019-01-11 08:58 | Outpatient (CLI) | payer MEDICAID ==
[2019-01-11] MEDS ORDERED: LACTATED RINGERS 1,000 ML IV ONE (09:30)
[2019-01-11 10:05] LABS: Bacteria,Urine 1+ /HPF (Negative); Bilirubin,Urine NEG (Negative); Blood,Urine NEG (Negative); Color,Urine Yellow (Yellow); Mucus,Urine FEW /HPF; Protein,Urine <15 mg/dL mg/dL (Negative); Urobilinogen,Urine < 2.0 mg/dL (<2.0)
[2019-01-11 11:16] VITALS: BP 109/62
== END 2019-01-11 12:25 | disposition home or self-care (01) ==
LOC: TRG 08:58
PROVIDERS: ATTEND Obstetrics & Gynecology
DX: O62.9 Abnormality of forces of labor, unspecified (principal); Z3A.27 27 weeks gestation of pregnancy
CPT/HCPCS: 81001; 96360; J7120; 96361